=== PATIENT | female | born 1935 | race Caucasian/White ===

== ENCOUNTER → 2018-11-29 15:09 | Outpatient (CLI) | payer MEDICARE, OTHER ==
[~2018-11-29 15:09] MED LIST: CYCLOBENZAPRINE10 MG; ELIQUIS2.5 MG PO; EZFE 200200 MG; FUROSEMIDE40 MG PO; K-DUR20 MEQ PO; LEVOTHYROXINE75 MCG PO; LISINOPRIL10 MG PO; METOPROLOL TART50 MG PO; PRAVACHOL40 MG PO; PROTONIX40 MG PO; REMERON15 MG PO
[2018-12-08 13:30] VITALS: BMI 20.8
== END | disposition home or self-care (01) ==
LOC: D.MRI 15:09
PROVIDERS: ATTEND Radiology Diagnostic Radiology
DX: S22.080A Wedge compression fracture of T11-T12 vertebra, initial encounter for closed fracture (principal); X58.XXXA Exposure to other specified factors, initial encounter

== ENCOUNTER 2018-12-06 13:00 | Outpatient (CLI) | payer MEDICARE, OTHER ==
[~2018-12-06] VITALS: Ht 165.1 cm; Wt 58.2 kg
[2018-12-06 13:48] VITALS: Ht 165.1 cm; Wt 58.2 kg
[2018-12-06 14:47] LABS: APPEARANCE CLEAR (CLEAR); BILIRUBIN NEGATIVE (NEGATIVE); COLOR YELLOW (YELLOW); GLUCOSE NEGATIVE (NEGATIVE); KETONE NEGATIVE (NEGATIVE); NITRITE NEGATIVE (NEGATIVE); PROTEIN NEGATIVE (NEGATIVE); UROBILINOGEN NORMAL (NORMAL)
== END 2018-12-06 14:05 | disposition home or self-care (01) ==
LOC: D.OPS 13:00
PROVIDERS: ATTEND Radiology Diagnostic Radiology
DX: N39.0 Urinary tract infection, site not specified (principal)

== ENCOUNTER 2018-12-08 10:57 | Outpatient (CLI) | payer MEDICARE, OTHER ==
[~2018-12-08] VITALS: Ht 165.1 cm; Wt 56.8 kg
--- NOTE | ~2018-12-08 | HEMODYNAMI ---
PATIENT:BRENDA CORBETT MEDICAL RECORD: [id number] : 31 [id number] ADMISSION DATE: 12/08/18 Generatedon:12/08/201815:12 Patient name: BRENDA CORBETT Patient #: [id number] SSN: : 1935 Date of study: 12/08/2018 Page: Of Hemodynamic Procedure Report Patient Data Patient Demographics Procedure consent was obtained First Name: JULY Gender: Female Last Name: ARIC : 1935 Patient #: [id number] Age: 83 year(s) Race: Unknown Additional ID: [id number] Contact details Address: [facility] [address] State: [place] City: [place] Zip code: [address] Past Medical History Allergies Allergen Reaction Date Comments Reported Codeine 12/08/2018 Morphine 12/08/2018 Other allergy 12/08/2018 tramadol Admission Admission Data Admission Date: 12/08/2018 Admission Time: 10:57 Height (in.): 65 BSA: 1.62 (m2) Height (cm.): 165.1 BMI: 20.8 (kg/m2) Weight (lbs.): 125 Weight (kg.): 56.7 Procedure Procedure Types Cath Procedure Peripheral Cath Diagnostic Procedure Fishing Worker Peripheral Procedures Kyphoplasty Kyphoplasty Thoracic Procedure Description Procedure Date Procedure Date: 12/08/2018 Procedure Start Time: 14:31 Procedure Staff Name Function Francis Cooper MD Performing Physician Kalie Mendenhall RT Partition Setter Nohemi Adler RN Nurse Natasha Jama RN Nurse KARLA RAMSEY RT Scrub Faizan Amador Jr, CRNA Additional personnel Procedure Data Cath Procedure Fluoroscopy Diagnostic fluoroscopy Total fluoroscopy Time: 7.8 time: 7.8 min min Diagnostic fluoroscopy Total fluoroscopy dose: 107 dose: 107 mGy mGy Procedure Medications Medication Administration Route Dosage Heparin Flush Bag added to field 1 bags (1000units/500ml NS) Lidocaine 1% added to field 20 Hemodynamics Rest BSA: 1.62 (m2) O2 Consumption: Estimated: 151.95 (ml/min) O2 Consumption indexed : Estimated:93.8 (ml/min/m) Heart Rate: 83 (bpm) Snapshots Pre Cath Intra NCS Post Cath Vital Signs Time Heart Resp SPO2 etCO2 NIBP (mmHg) Rhythm Pain Sedation Rate (ipm) (%) (mmHg) Status Level (bpm) 14:17:40 104 17 100 31.8 116/67(99) NSR 0 (11) 10(A) , No pain 14:21:58 106 17 100 28.8 120/73(94) NSR 0 (11) 10(A) , No pain 14:24:03 103 16 100 33.3 115/64(85) NSR 0 (11) 10(A) , No pain 14:26:06 106 14 100 29.5 106/65(83) NSR 0 (11) 9(A) , No pain 14:28:05 105 14 100 34.8 109/69(84) NSR 0 (11) 9(A) , No pain 14:30:05 105 15 100 28.8 100/66(82) NSR 0 (11) 9(A) , No pain 14:32:04 104 14 100 32.5 108/66(80) NSR 0 (11) 9(A) , No pain 14:34:09 102 13 100 36.3 90/56(67) NSR 0 (11) 9(A) , No pain 14:36:10 102 12 100 34.8 72/48(63) NSR 0 (11) 8(A) , No pain 14:38:05 102 15 100 24.2 79/46(55) NSR 0 (11) 8(A) , No pain 14:40:02 103 13 100 34.1 72/44(58) NSR 0 (11) 8(A) , No pain 14:43:00 104 15 100 27.3 Measuring NSR 0 (11) 8(A) , No pain 14:44:03 104 14 100 28.8 82/50(63) NSR 0 (11) 8(A) , No pain 14:47:01 103 16 100 28.8 74/57(64) NSR 0 (11) 8(A) , No pain 14:48:34 102 14 100 32.5 Error NSR 0 (11) 8(A) , No pain 14:49:54 103 14 100 29.5 102/57(73) NSR 0 (11) 8(A) , No pain 14:51:52 102 12 100 19.7 90/64(76) NSR 0 (11) 8(A) , No pain 14:53:47 103 12 100 29.5 96/62(74) NSR 0 (11) 8(A) , No pain 14:55:46 102 11 100 33.3 79/61(71) NSR 0 (11) 8(A) , No pain 14:58:36 104 15 100 26.5 106/59(81) NSR 0 (11) 8(A) , No pain 15:00:35 103 15 100 32.5 102/67(82) NSR 0 (11) 8(A) , No pain 15:02:33 103 13 100 32.5 105/63(87) NSR 0 (11) 8(A) , No pain 15:04:33 103 14 100 25.7 97/70(82) NSR 0 (11) 8(A) , No pain 15:06:27 101 21 100 25.7 105/76(88) NSR 0 (11) 8(A) , No pain 15:08:24 103 15 100 28 118/73(89) NSR 0 (11) 8(A) , No pain 15:10:22 103 15 29.5 116/81(99) NSR 0 (11) 8(A) , No pain 15:12:19 105 19 28 131/86(103) NSR 0 (11) 8(A) , No pain Medications Time Medication Route Dose Verified Delivered Reason Notes Effec tiveness by by 14:27:27 Heparin Flush added 1 Francis Blanco used for Bag to bags Kenneth Cooper procedure (1000units/500ml field MD STEEN NS) 14:27:45 Lidocaine 1% added 20ml Francis Blanco used for to vial Kenneth Cooper procedure field MD STEEN Procedure Log Time Note 14:04:11 Patient Weight : 125 lbs 14:04:21 Patient Height : 65 inches 14:04:31 Time tracking: Regular hours (M-F 7:00 - 5:00) 14:04:49 Plan of Care:Hemodynamics will remain stable., Cardiac rhythm will remain stable., Comfort level will be maintained., Respiratory function will remain adequate., Patient/ family verbilizes understanding of procedure., Procedure tolerated without complication., Recovers from procedure without complications.. 14:05:03 Patient received from Outpatients to IR Alert and oriented. Tansferred to table in Prone position. 14:05:06 Signed procedure consent form obtained from patient. 14:05:08 Correct patient and procedure confirmed by team. 14:05:15 H&P Date Dictated: 12/08/2018 Within 30 days and on chart., H&P Addendum completed by physician on day of procedure. (MUST COMPLETE FOR ALL OUTPATIENTS). 14:05:18 Pre-procedure instructions explained to patient. 14:05:18 Pre-op teaching completed and patient verbalized understanding. 14:05:20 Family in waiting room. 14:05:22 Patient NPO since Midnight. 14:05:34 Patient allergic to Codeine 14:05:41 Patient allergic to Morphine 14:06:53 Patient allergic to Other allergytramadol 14:07:42 - 14:07:43 ----Pre-sedation anethsthesia assessment.----see anesthesia notes for monitoring of patient during procedure 14:08:42 - 14:09:22 IV patent on arrival in left wrist with D5/.45%NaCl at KVO. 14:10:08 Thoracic area was prepped with dura-prep and draped in sterile fashion 14:10:25 - 14:11:26 Virgie BONE BX 11GA kit opened to sterile field. 14:11:37 VIRGIE 15/2 VERT AUGMENTATION opened to sterile field. 14:11:39 VIRGIE AUTOPLEX MIXER W/VHV opened to sterile field. 14:11:40 Chula 11G Curved Needle opened to sterile field. 14:16:38 ECG and BP/O2 sat monitors applied to patient. 14:16:39 Vital chart was started 14:16:41 Baseline sample Acquired. 14:16:43 Full Disclosure recording started 14:16:44 - 14:27:27 Heparin Flush Bag (1000units/500ml NS) 1 bags added to field was administered by Francis Cooper MD; used for procedure; Verbal order read back and verified. 14::45 Lidocaine 1% 20ml vial added to field was administered by Francis estrada MD; used for procedure; Verbal order read back and verified. 14:30:31 Physician arrived 14:30:31 --------ALL STOP TIME OUT------ 14:30:32 Final Timeout: patient, procedure, and site verified with staff and physician. All members of the team are in agreement. 14:30:58 Fire Safety Assessment: A--An alcohol-based skin anteseptic being used preoperatively., C--Open oxygen or nitrous oxide is being used. 14:31:08 3b) 30-44 Moderately reduced kidney function. ,no contrast being used 14::32 Procedure started. 14:31:38 Local anesthetic to Thoracic area with Lidocaine 1% by Francis Cooper MD.INITIAL ACCESS ONLY 14:39:58 Jamshidi needle introduced. 14:45:09 Bone bx needle placed. 14:47:54 Kyphoplasty balloon introduced. 15:01:03 Cement introduced to vertebral body. 15:08:44 Procedure ended.(Physican Out) 15:09:35 Fluoroscopy time 07.80 minutes. 15:09:40 Fluoroscopy dose: 107 mGy 15:09:40 Flurop Dose total: 107 15:09:44 Procedure and supply charges have been captured, reviewed, submitted an d are correct. 15:11:15 Report given to Outpatients. 15:12:52 Vital chart was stopped Device Usage Item Name Manufacture Quantity Catalog Hospital Part Current Minim al Lot# / Number Charge Number Stock Stock Serial# Code Virgie BONE [place] 1 [id number] 5 BX 11GA kit VIRGIE 15/2 [place] 1 [id number] 5 VERT AUGMENTATION VIRGIE Virgie 1 [id number] 5 AUTOPLEX MIXER W/VHV [place] 11G Virgie 1 [id number] 5 Curved Needle Signature Audit [place] Stage Time Signature Unsigned Intra-Procedure 12/08/2018 Kalie Mendenhall 3:12:48 PM RT(R) [facility] [address] [place] [address]
[2018-12-08 11:12] LABS: BASOPHILS 0.6 % (0-2); HEMATOCRIT 42.9 % (36.0-48.0); IMMATURE GRANULOCYTES 0.1 % (0-5); MCHC 32.6 g/dL (31.0-37.0); MCV 98.2 fL (80.0-100.0); MEAN PLATELET VOLUME 9.6 fL (7.4-10.4); MONOCYTES 15.2 % (2-11); NEUTROPHILS 44.1 % (40-80); PLATELET COUNT 278 10x3/uL (130-400); RBC 4.37 10x6/uL (4.00-5.40); RDW 13.1 % (11.5-14.5); WBC 6.8 10x3/uL (4.8-10.8)
[2018-12-08 11:19] LABS: ANION GAP 8.1 mmol/L (8-16); APTT 29.5 SECONDS (22.8-39.4); CALCIUM 10.1 mg/dL (8.5-10.1); CARBON DIOXIDE 33.4 mmol/L (21.0-32.0); CREATININE - SERUM 1.4 mg/dL (0.6-1.3); INR 1.06 (0.85-1.17); POTASSIUM - SERUM 4.5 mmol/L (3.5-5.1); PROTIME 13.3 SECONDS (11.6-15.0)
[2018-12-08] MEDS ORDERED: LEVOTHYROXINE75 MCG PO (13:09)
[2018-12-08] MEDS ORDERED: FUROSEMIDE40 MG PO (13:10)
[2018-12-08] MEDS ORDERED: ELIQUIS2.5 MG PO (13:10)
[2018-12-08] MEDS ORDERED: REMERON15 MG PO (13:11)
[2018-12-08] MEDS ORDERED: EZFE 200200 MG (13:12)
[2018-12-08] MEDS ORDERED: LISINOPRIL10 MG PO (13:12)
[2018-12-08] MEDS ORDERED: K-DUR20 MEQ PO (13:13)
[2018-12-08] MEDS ORDERED: METOPROLOL TART50 MG PO (13:13)
[2018-12-08] MEDS ORDERED: CYCLOBENZAPRINE10 MG (13:16)
[2018-12-08] MEDS ORDERED: PROTONIX40 MG PO (13:22)
[2018-12-08] MEDS ORDERED: PRAVACHOL40 MG PO (13:23)
[2018-12-08 13:30] VITALS: Ht 165.1 cm; Wt 56.8 kg
== END 2018-12-08 18:18 | disposition home or self-care (01) ==
LOC: D.SP 10:57 → D.RAD 13:00 → D.SP 18:18
PROVIDERS: ATTEND Radiology Diagnostic Radiology
DX: M48.54XA Collapsed vertebra, not elsewhere classified, thoracic region, initial encounter for fracture (principal)